=== PATIENT | male | born 1960 | race Caucasian/White ===

== ENCOUNTER 2016-09-13 15:46 | Outpatient (CLI) | payer OTHER ==
[2016-09-13 16:10] LABS: EOSINOPHILS % 5.6 % (0.0-6.8); LYMPHOCYTES # 1.8 # k/uL (0.6-4.0); MEAN CORPUSCULAR HEMOGLOBIN 29.5 pg (28.0-34.0); MONOCYTES # 0.3 # k/uL (0.0-0.9); MONOCYTES % 3.5 % (0.0-11.0); NEUTROPHILS # 6.5 # k/uL (1.4-7.7)
[2016-09-13 16:42] LABS: eGFR (African) > 60; eGFR (Non-African) > 60
== END 2016-09-13 15:47 ==
LOC: LAB 15:46
PROVIDERS: ATTEND Physician Assistant
DX: R73.9 Hyperglycemia, unspecified (principal)
CPT/HCPCS: 36415; 80053; 83036; 85025

== ENCOUNTER 2016-10-18 09:15 | Outpatient (CLI) | payer OTHER | END 2016-10-18 09:16 | LOC: LAB 09:15 | PROVIDERS: ATTEND Physician Assistant | DX: E11.9 Type 2 diabetes mellitus without complications (principal) | CPT/HCPCS: 36415; 83036 ==

== ENCOUNTER 2017-01-14 09:49 | Outpatient (CLI) | payer OTHER | END 2017-01-14 09:50 | LOC: LAB 09:49 | PROVIDERS: ATTEND Physician Assistant | DX: E11.9 Type 2 diabetes mellitus without complications (principal) | CPT/HCPCS: 36415; 80061; 83036 ==